=== PATIENT | female | born 1950 | race Caucasian/White ===

== ENCOUNTER 2018-12-27 10:03 | Day surgery (SDC) | payer MEDICARE, OTHER ==
[~2018-12-27] VITALS: Ht 162.6 cm; Wt 55.5 kg
[2018-12-27] MEDS ORDERED: ROSU5 PO (12:09)
--- NOTE | 2018-12-27 13:20 | NUR ---
12/27/18 1319 Marianna Garcia PATIENT AT FIRST SAYS HER NAUSEA IS BETTER BUT AFTER SITTING UP SHE EXPERIENCES ANOTHER WAVE OF NAUSEA. SHE DOES SOME DRY WRETCHING BUT NOTHING COMES UP. SHE IS SITTING IN BED AND STATES NO PAIN ANYWHERE JUST FEELS "BLAH" SHE ASKS FOR ICE CHIPS AND IS BROUGHT INTO THE ROOM. WILL CONTINUE TO MONITOR
== END 2018-12-27 13:43 | disposition home or self-care (01) ==
LOC: ORSCSDS 10:03
PROVIDERS: Internal Medicine Gastroenterology
PROC: 0DBL8ZX Excision of Transverse Colon, Via Natural or Artificial Opening Endoscopic, Diagnostic (ICD-10-PCS; principal; 2018-12-27 11:30)
DX: Z12.11 Encounter for screening for malignant neoplasm of colon (principal); D12.3 Benign neoplasm of transverse colon; K57.30 Diverticulosis of large intestine without perforation or abscess without bleeding; K64.8 Other hemorrhoids; Z86.010 Personal history of colon polyps
CPT/HCPCS: 88305; J2250; J2405; J3010; J7120

== ENCOUNTER 2024-05-18 09:30 | Day surgery (SDC) | payer MEDICARE, OTHER ==
[~2024-05-18] VITALS: Ht 162.6 cm; Wt 56.2 kg
[~2024-05-18 09:30] MED LIST: Lactated Ringer's 1,000 ML IV ONE; ROSU5 PO; propofoL 50 ML IV ONE
[2024-05-18] MEDS ORDERED: CETI5 (09:56)
[2024-05-18] MEDS ORDERED: BENADRYL25 MG (09:56)
[2024-05-18] MEDS ORDERED: CEPHALEXIN500 M2 (09:56)
[2024-05-18] MEDS ORDERED: THERA-D2000 UNIT (09:56)
[2024-05-18] MEDS ORDERED: MULVITA (09:56)
[2024-05-18] MEDS ORDERED: METAMUCIL POWD798 GM (09:57)
[2024-05-18] MEDS ORDERED: Lactated Ringer's 1,000 ML IV ONE (10:25)
--- NOTE | 2024-05-18 12:01 | NUR ---
05/18/24 1201 REMEDIOS WHITE VERY PLEASANT PATIENT.
[2024-05-18 12:02] VITALS: BP 117/67
== END 2024-05-18 11:55 | disposition home or self-care (01) ==
LOC: ORSCSDS 09:30
PROVIDERS: Internal Medicine Gastroenterology
PROC: 0DJD8ZZ Inspection of Lower Intestinal Tract, Via Natural or Artificial Opening Endoscopic (ICD-10-PCS; principal; 2024-05-18 11:00)
DX: Z12.11 Encounter for screening for malignant neoplasm of colon (principal); Z86.0100 Personal history of colon polyps, unspecified; Z79.899 Other long term (current) drug therapy
CPT/HCPCS: J2704; J7120

== ENCOUNTER 2024-06-28 07:33 | Day surgery (SDC) | payer MEDICARE, OTHER ==
[~2024-06-28] VITALS: Ht 165.1 cm; Wt 57.2 kg
[~2024-06-28 07:33] MED LIST changes: +BENADRYL25 MG; +Balanced Salt Epinephrine Irrigation Solution 500 mL IR SCH; +CEPHALEXIN500 M2; +CETI5; +Diazepam 5 MG Tab PO PRN; +Diazepam 5 MG Tab PO SCH; -Lactated Ringer's 1,000 ML IV ONE; +Lidocaine HCl/Pf 1% 5 ML VIAL XX SCH; +METAMUCIL POWD798 GM; +MULVITA; +Moxifloxacin HCL 0.5 MG/0.1 ML 0.4MLSYR RIGHTEYE SCH; +Ondansetron 4 MG SoluTab MM PRN; +PHENYLEPHRINE\\TROPICAMIDE\\TETRACAINE OPHTHALMIC DILATING SOLN RIGHTEYE PRN; +Povidone-Iodine 450 DROP/30 ML Solution ONE; +Povidone-Iodine 450 DROP/30 ML Solution RIGHTEYE SCH; +THERA-D2000 UNIT; +Tetracaine HCl/Pf 0.5% Opth Soln 4 ml ONE; +Triamcinolone Inj Susp 40 MG / ML 1ML Vial INJ SCH; +Triamcinolone Inj Susp 40 MG / ML 1ML Vial ONE; -propofoL 50 ML IV ONE
[2024-06-28] MEDS ORDERED: Midazolam HCl 1MG / ML 2ML Vial ONE (08:46)
[2024-06-28 09:12] VITALS: BP 123/70
== END 2024-06-28 09:28 | disposition home or self-care (01) ==
LOC: ORSCSDS 07:33
PROVIDERS: Ophthalmology
PROC: 08RJ3JZ Replacement of Right Lens with Synthetic Substitute, Percutaneous Approach (ICD-10-PCS; principal; 2024-06-28 09:00)
DX: H25.813 Combined forms of age-related cataract, bilateral (principal); Z79.899 Other long term (current) drug therapy
CPT/HCPCS: J2250; J3301; V2632

== ENCOUNTER 2024-07-12 08:33 | Day surgery (SDC) | payer MEDICARE, OTHER ==
[~2024-07-12] VITALS: Ht 162.6 cm; Wt 56.9 kg
[~2024-07-12 08:33] MED LIST changes: -Diazepam 5 MG Tab PO PRN; -Diazepam 5 MG Tab PO SCH; +Moxifloxacin HCL 0.5 MG/0.1 ML 0.4MLSYR LEFTEYE SCH; -Moxifloxacin HCL 0.5 MG/0.1 ML 0.4MLSYR RIGHTEYE SCH; -Ondansetron 4 MG SoluTab MM PRN; +PHENYLEPHRINE\\TROPICAMIDE\\TETRACAINE OPHTHALMIC DILATING SOLN LEFTEYE PRN; -PHENYLEPHRINE\\TROPICAMIDE\\TETRACAINE OPHTHALMIC DILATING SOLN RIGHTEYE PRN; +Povidone-Iodine 450 DROP/30 ML Solution LEFTEYE SCH; -Povidone-Iodine 450 DROP/30 ML Solution RIGHTEYE SCH
[2024-07-12] MEDS ORDERED: NS 500 ML IV ONE (08:59)
[2024-07-12] MEDS ORDERED: Midazolam HCl 1MG / ML 2ML Vial ONE (09:21)
[2024-07-12 10:11] VITALS: BP 129/69
== END 2024-07-12 10:33 | disposition home or self-care (01) ==
LOC: ORSCSDS 08:33
PROVIDERS: Ophthalmology
PROC: 08RK3JZ Replacement of Left Lens with Synthetic Substitute, Percutaneous Approach (ICD-10-PCS; principal; 2024-07-12 10:00)
DX: H25.812 Combined forms of age-related cataract, left eye (principal); Z96.1 Presence of intraocular lens; Z79.899 Other long term (current) drug therapy
CPT/HCPCS: J2250; J3301; V2632